=== PATIENT | female | born 2000 | race Caucasian/White ===

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

== ENCOUNTER → 2020-12-25 | Outpatient (CLI) | payer OTHER ==
[2020-12-26 09:58] LABS: Candida species (DNA Probe) Negative (NEGATIVE); G. vaginalis (DNA Probe) Negative (NEGATIVE); T. vaginalis (DNA Probe) Negative (NEGATIVE)
== END ==
LOC: LAB 09:35 → LAB SHORT 09:35
PROVIDERS: Family Medicine
DX: N39.3 Stress incontinence (female) (male) (principal); B37.3 Candidiasis of vulva and vagina
CPT/HCPCS: 87086; 87480; 87510; 87660

== ENCOUNTER → 2021-02-03 | Outpatient (CLI) | payer OTHER | LOC: LAB 11:50 → LAB SHORT 11:50 | DX: D48.5 Neoplasm of uncertain behavior of skin (principal); D22.5 Melanocytic nevi of trunk | CPT/HCPCS: 88305 ==

== ENCOUNTER → 2021-11-18 | Outpatient (CLI) | payer OTHER | LOC: LAB SHORT 14:08 → PLD 14:08 | DX: D22.5 Melanocytic nevi of trunk (principal) | CPT/HCPCS: 88305 ==

== ENCOUNTER → 2022-03-04 | Outpatient (CLI) | payer OTHER | LOC: LAB 15:40 → LAB SHORT 15:40 | PROVIDERS: Family Medicine | DX: Z12.4 Encounter for screening for malignant neoplasm of cervix (principal) | CPT/HCPCS: G0145 ==

== ENCOUNTER → 2022-09-01 | Outpatient (CLI) | payer OTHER ==
[2022-09-02 10:01] LABS: Candida species (DNA Probe) Negative (NEGATIVE); G. vaginalis (DNA Probe) Negative (NEGATIVE); T. vaginalis (DNA Probe) Negative (NEGATIVE)
== END | disposition home or self-care (01) ==
LOC: LAB SHORT 13:53 → LAB 13:53
PROVIDERS: Advanced Practice Midwife
DX: N76.0 Acute vaginitis (principal)
CPT/HCPCS: 87480; 87510; 87660

== ENCOUNTER 2022-09-18 00:06 | Emergency (ER) | payer OTHER ==
[~2022-09-18] VITALS: Ht 165.1 cm; Wt 52.2 kg
[2022-09-18 00:16] VITALS: BP 114/85
== END 2022-09-18 00:35 | disposition home or self-care (01) ==
LOC: ER 00:06
DX: R04.0 Epistaxis (principal); K91.841 Postprocedural hemorrhage of a digestive system organ or structure following other procedure; Z88.0 Allergy status to penicillin
CPT/HCPCS: 99283; A9270

== ENCOUNTER 2022-10-24 19:00 | Emergency (ER) | payer OTHER ==
[~2022-10-24] VITALS: Ht 162.6 cm; Wt 49.9 kg
[2022-10-24 19:43] LABS: BASOPHILS ABSOLUTE AUTO 0.05 K/mm3 (0.00-0.23); BASOPHILS PERCENT AUTO 1 % (0-2); EOSINOPHILS PERCENT AUTO 1 % (0-6); Hematocrit 39.1 % (33.0-51.0); Hemoglobin 13.2 g/dL (11.5-16.0); IMMATURE GRAN ABSOLUTE AUTO 0.01 K/mm3 (0.00-0.10); IMMATURE GRAN PERCENT AUTO 0 % (0-1); LYMPHOCYTES ABSOLUTE AUTO 2.44 K/mm3 (0.84-5.20); LYMPHOCYTES PERCENT AUTO 34 % (21-46); MONOCYTES ABSOLUTE AUTO 0.76 K/mm3 (0.16-1.47); MONOCYTES PERCENT AUTO 11 % (4-13); Mean Corpuscular HGB 32.9 pg (26.0-34.0); Mean Corpuscular HGB Conc 33.8 g/dL (31.5-36.5); Mean Corpuscular Volume 98 fL (80-100); Mean Platelet Volume 10.2 fL (9.1-12.4); NEUTROPHILS ABSOLUTE AUTO 3.91 K/mm3 (1.96-9.15); NEUTROPHILS PERCENT AUTO 54 % (41-73); Platelet Count 280 K/mm3 (150-400); RDW Coefficient Variation 13.5 % (11.7-14.2); Red Blood Cell Count 4.01 M/mm3 (3.80-5.20); White Blood Cell Count 7.27 K/mm3 (4.00-11.30)
[2022-10-24 20:07] LABS: Free Thyroxine 0.68 ng/dL (0.70-1.60)
[2022-10-24 20:11] LABS: Albumin/Globulin Ratio 1.4 (0.8-1.8); Bilirubin, Total 0.1 mg/dL (0.1-1.0); Bun/Creatinine Ratio 19.1 (12.0-20.0); Calcium, Blood 8.8 mg/dL (8.5-10.1); Creatinine, Blood 0.63 mg/dL (0.40-1.00); Globulin, Blood 2.9 g/dL (2.2-4.0); Potassium, Blood 3.4 mmol/L (3.5-5.5); Thyroid Stimulating Hormone 5.24 uIU/mL (0.360-4.800); Total Protein, Blood 6.9 g/dL (6.4-8.2)
[2022-10-24 21:50] LABS: Lithium <0.20 mmol/L (0.60-1.20)
[2022-10-24] MEDS ORDERED: BUPROPION XL150 M1 PO (22:15)
[2022-10-24] MEDS ORDERED: DESVENLAFAXINE100 M3 PO (22:15)
[2022-10-24] MEDS ORDERED: Lithium Carbon150 MG PO (22:15)
[2022-10-24] MEDS ORDERED: TOPI100 PO (23:36)
[2022-10-24 23:50] VITALS: BP 126/80
[2022-10-24] MEDS ORDERED: LOPE2C PO (23:51)
[2022-10-24] MEDS ORDERED: MECL25 PO (23:51)
[2022-10-24] MEDS ORDERED: ONDA4ODT MM (23:51)
== END 2022-10-25 00:25 | disposition home or self-care (01) ==
LOC: ER 19:00
PROVIDERS: Student in an Organized Health Care Education/Training Program
DX: R11.2 Nausea with vomiting, unspecified (principal); R19.7 Diarrhea, unspecified; E86.0 Dehydration; Z88.0 Allergy status to penicillin
CPT/HCPCS: 71046; 80053; 80178; 84439; 84443; 84703; 85025; 93005; 93010; 96361; 96374; 99284-25; J2405; J7030

== ENCOUNTER → 2022-12-01 | Outpatient (CLI) | payer OTHER ==
[~2022-12-01] MED LIST changes: +BUPROPION XL150 M1 PO; +DESVENLAFAXINE100 M3 PO; +LOPE2C PO; +Lithium Carbon150 MG PO; +MECL25 PO; +ONDA4ODT MM; +TOPI100 PO
[2022-12-01 16:07] LABS: Candida species (DNA Probe) Negative (NEGATIVE); G. vaginalis (DNA Probe) Negative (NEGATIVE); T. vaginalis (DNA Probe) Negative (NEGATIVE)
== END | disposition home or self-care (01) ==
LOC: LAB 12:23 → LAB SHORT 12:23
PROVIDERS: Advanced Practice Midwife
DX: N76.0 Acute vaginitis (principal)
CPT/HCPCS: 87480; 87510; 87660

== ENCOUNTER → 2023-01-05 | Outpatient (CLI) | payer OTHER | LOC: LAB 01-04 11:08 → LAB SHORT 01-04 11:08 → LAB 11:08 | PROVIDERS: Family Medicine | DX: R19.7 Diarrhea, unspecified (principal) | CPT/HCPCS: 82653; 83993 ==

== ENCOUNTER 2023-01-21 12:53 | Day surgery (SDC) | payer OTHER ==
[2023-01-21] VITALS (12 sets, daily range): BP systolic 122–134; BP diastolic 83–96
[~2023-01-21] VITALS: Ht 165.1 cm; Wt 45.1 kg
[2023-01-21] MEDS ORDERED: DESOGESTREL-EE1 EACH PO (13:19)
[2023-01-21] MEDS ORDERED: Ventolin5 MG/1 ML INH (13:19)
[2023-01-21] MEDS ORDERED: RIZATRIPTAN10 MG SL (13:20)
[2023-01-21] MEDS ORDERED: SUMA6I SC (13:21)
[2023-01-21] MEDS ORDERED: BUTALB-ASPIRIN1 EAC1 PO (13:22)
--- NOTE | 2023-01-21 16:05 | NUR ---
PT INTO STEP S/P EXPLORATORY LAPAROSCOPY.PT A&OX4.UMBILICAL INCISION SITE WITH EXOFEN-SITE CLEAR. LUQ SUPERFICIAL INCISION/TOWEL CLIP SITE ALSO WITH EXOFEN-SITE C/D/I.PT DENIES PAIN OR NAUSEA AT THIS TIME. PT REQUESTS TO AMBULATE TO [facility]-REQUEST GRANTED. PT PROVIDED WITH SUPPLIES FOR [facility] AND [facility] PAD. PRESSLEY PAD NOTED WITH SMALL AMOUNT OF SANGINOUS DRAINAGE.
--- NOTE | 2023-01-21 18:02 | NUR ---
Discharge instructions reviewed with patient. Patient verbalizes understanding. Copy given to patient to take home. Dressing to procedure site clean, dry, intact with no visible drainage, swelling, erythema or bruising noted. Patient States Post-Procedure ride home has been arranged. Discharged via wheelchair to private car for ride home.
== END 2023-01-21 18:10 | disposition home or self-care (01) ==
LOC: ORSCMMR 12:53 → ORD 14:15 → ORSCMMR 14:15
PROVIDERS: Obstetrics & Gynecology
PROC: 0UBF4ZX Excision of Cul-de-sac, Percutaneous Endoscopic Approach, Diagnostic (ICD-10-PCS; principal; 2023-01-21 14:15)
DX: N80.319 Endometriosis of the anterior cul-de-sac, unspecified depth (principal)
CPT/HCPCS: 36415; 84703; 86850; 86900; 86901; 88305; A9270; J1885; J2250; J2405; J2704; J3010; J7120

== ENCOUNTER → 2023-04-02 | Outpatient (CLI) | payer OTHER ==
[~2023-04-02] MED LIST changes: +BUTALB-ASPIRIN1 EAC1 PO; +DESOGESTREL-EE1 EACH PO; +RIZATRIPTAN10 MG SL; +SUMA6I SC; +Ventolin5 MG/1 ML INH
[2023-04-03 11:08] LABS: G. vaginalis (DNA Probe) Negative (NEGATIVE); T. vaginalis (DNA Probe) Negative (NEGATIVE)
[2023-04-03 11:09] LABS: Candida species (DNA Probe) Negative (NEGATIVE)
== END | disposition home or self-care (01) ==
LOC: LAB SHORT 17:34
PROVIDERS: Obstetrics & Gynecology
DX: N89.8 Other specified noninflammatory disorders of vagina (principal)
CPT/HCPCS: 87480; 87510; 87660